=== PATIENT | female | born 2000 | race Caucasian/White ===

== ENCOUNTER 2022-03-17 19:50 | Inpatient (IN) | payer OTHER ==
[2022-03-17] MEDS ORDERED: DEXTROSE 5%-LACTATED RINGERS 1,000 ML IV SCH (21:30)
[2022-03-17] MEDS ORDERED: PENICILLIN G POTASSIUM 20,000,000 (20Mm) UNITS VIAL IVPB ONE ×2 (21:59)
[2022-03-17 22:11] VITALS: BMI 28.3
[2022-03-17] MEDS: MISOPROSTOL 100 MCG TABLET PV SCH ×2 (22:20→22:35)
[2022-03-17] MEDS ORDERED: PENICILLIN G POTASSIUM 5,000,000 UNIT in DEXTROSE 5%-WATER - 250 ML IVPB ONE (22:30)
[2022-03-18] MEDS ORDERED: BUTORPHANOL TARTRATE 2 MG/ML VIAL ONE (02:15)
[2022-03-18] MEDS ORDERED: PROMETHAZINE HCL 25 MG/1 ML VIAL ONE (02:15)
[2022-03-18] MEDS ORDERED: BUTORPHANOL TARTRATE 1 MG/ML VIAL IVPB ONE (02:21)
[2022-03-18] MEDS ORDERED: PROMETHAZINE HCL 25 MG/1 ML VIAL IVPB ONE (02:21)
[2022-03-18] MEDS: MISOPROSTOL 100 MCG TABLET PV SCH ×2 (02:25→06:16)
[2022-03-18] MEDS ORDERED: PENICILLIN POTASSIUM IVPB SCH (02:30)
[2022-03-18] MEDS ORDERED: WATER IVPB SCH (02:30)
[2022-03-18] MEDS ORDERED: DEXTROSE 5% IVPB SCH (02:30)
[2022-03-18] MEDS ORDERED: OXYTOCIN 20 UNITS in 0.9% NS 20 UNIT/1,000 ML INFUS.BAG IV ONE ×2 (03:57→05:00)
[2022-03-18] MEDS ORDERED: WITCH HAZEL 50% (TUCKS) 40 PAD/JAR PAD TP PRN (05:13)
[2022-03-18] MEDS ORDERED: BISACODYL 10 MG SUPP.RECT RC PRN (05:13)
[2022-03-18] MEDS ORDERED: BENZOCAINE 28 GM HEMORRHOIDAL OINTMENT TP PRN (05:13)
[2022-03-18] MEDS ORDERED: ACETAMINOPHEN 325 MG TABLET (FP) PO PRN (05:13)
[2022-03-18] MEDS ORDERED: BENZOCAINE 20% 57 GM BOTTLE TP PRN (05:13)
[2022-03-18] MEDS: OXYTOCIN 20 UNITS in 0.9% NS 20 UNIT/1,000 ML INFUS.BAG IV SCH (06:16)
[2022-03-18 07:16] LABS: CORD BASE EXCESS -6.4 mmol/L (0-2); CORD PCO2 42.9 mmHg (30-78); CORD pH 7.287 (7.14-7.44)
[2022-03-18 08:16] LABS: HEMATOCRIT 23.5 % (32.4-45.2); HEMOGLOBIN 7.6 GM/dL (10.7-15.3); MCH 29.4 pg (25.7-33.7); MCHC 32.5 g/dl (32.0-36.0); MEAN CELL VOLUME 90.4 fl (80-96); MEAN PLT VOLUME 11.7 fl (7.5-11.1); PLATELET COUNT 193 10^3/uL (134-434); RDW 12.8 % (11.6-15.6)
[2022-03-18] MEDS: FERROUS SO4 325 MG TABLET (FP) PO SCH ×3 (08:25→17:35)
[2022-03-18] MEDS: PRENATAL VITAMINS W/ FOLIC ACID TABLET (FP) PO SCH (09:50)
[2022-03-18] MEDS ORDERED: ceFAZolin 2 GRAM PREMIX BAG IVPB SCH (10:00)
[2022-03-18] MEDS ORDERED: CEFAZOLIN 2 GM in DEXTROSE 5%-WATER - 100 ML IVPB SCH (11:00)
[2022-03-18 11:27] LABS: ANISOCYTOSIS 1+; MACROCYTOSIS 0
[2022-03-18] MEDS: CEFAZOLIN 2 GM in DEXTROSE 5%-WATER - 100 ML IVPB SCH ×2 (11:42→19:46)
[2022-03-18 15:04] LABS: BASO % 0.1 % (0-2.0); HEMATOCRIT 19.9 % (32.4-45.2); LYMPH % 4.3 % (8-40); MCH 29.2 pg (25.7-33.7); MCHC 32.4 g/dl (32.0-36.0); MEAN CELL VOLUME 90.2 fl (80-96); MEAN PLT VOLUME 11.3 fl (7.5-11.1); MONO % 3.6 % (3.8-10.2); PLATELET COUNT 153 10^3/uL (134-434); RBC 2.21 M/mm3 (3.60-5.2); RDW 13.2 % (11.6-15.6); WHITE BLOOD COUNT 26.8 K/mm3 (4.0-10.0)
[2022-03-18 15:07] LABS: HEMOGLOBIN 6.5 GM/dL (10.7-15.3)
[2022-03-18 15:20] LABS: BLOOD UREA NITROGEN 6.2 mg/dL (7-18); CALCIUM 7.7 mg/dL (8.5-10.1)
[2022-03-18 15:23] LABS: CREATININE 0.5 mg/dL (0.55-1.3)
[2022-03-18 15:25] LABS: BILIRUBIN,TOTAL 0.2 mg/dL (0.2-1); TOT PROT 4.8 g/dl (6.4-8.2)
[2022-03-18] MEDS ORDERED: FERRIC CARBOXYMALTOSE 750 MG in SODIUM CHLORIDE 250 ML IVPB ONE (15:28)
[2022-03-18 16:01] LABS: ANISOCYTOSIS 0; MACROCYTOSIS 0
[2022-03-18] MEDS ORDERED: IRON SUCROSE INJECTION 300 MG in SODIUM CHLORIDE 235 ML IVPB ONE (16:25)
[2022-03-19] MEDS: CEFAZOLIN 2 GM in DEXTROSE 5%-WATER - 100 ML IVPB SCH ×3 (03:37→19:39)
[2022-03-19] MEDS: OXYTOCIN 20 UNITS in 0.9% NS 20 UNIT/1,000 ML INFUS.BAG IV SCH (06:05)
[2022-03-19 08:17] LABS: BASO % 0.2 % (0-2.0); EOS % 0.4 % (0-4.5); HEMATOCRIT 16.3 % (32.4-45.2); LYMPH % 17.9 % (8-40); MCH 30.6 pg (25.7-33.7); MCHC 34.1 g/dl (32.0-36.0); MEAN CELL VOLUME 89.7 fl (80-96); MEAN PLT VOLUME 10.1 fl (7.5-11.1); MONO % 9.4 % (3.8-10.2); NEUT % 72.1 % (42.8-82.8); PLATELET COUNT 159 10^3/uL (134-434); RBC 1.81 M/mm3 (3.60-5.2); RDW 13.4 % (11.6-15.6)
[2022-03-19 08:24] LABS: HEMOGLOBIN 5.6 GM/dL (10.7-15.3)
[2022-03-19] MEDS: FERROUS SO4 325 MG TABLET (FP) PO SCH ×3 (09:00→17:14)
[2022-03-19 09:29] LABS: INR 1.09 (0.83-1.09); PROTHROMBIN TIME (PATIENT) 12.5 SEC (9.7-13.0)
[2022-03-19] MEDS: PRENATAL VITAMINS W/ FOLIC ACID TABLET (FP) PO SCH (09:58)
[2022-03-19] MEDS: IBUPROFEN 600 MG TABLET (FP) PO PRN ×2 (09:58→22:47)
[2022-03-19] MEDS ORDERED: DIPHTH,PERTUSS(ACELL),TET 0.5 ML DISP.SYRIN IM ONE (10:00)
[2022-03-19] MEDS ORDERED: FLU VACC QS2021-22(6MOS UP)/PF 60 MCG/0.5 ML SYRINGE IM ONE (10:00)
[2022-03-19] MEDS ORDERED: SENNOSIDES/DOCUSATE COMBO (SENNA PLUS) TABLET (UD) PO PRN (22:00)
[2022-03-20] MEDS: CEFAZOLIN 2 GM in DEXTROSE 5%-WATER - 100 ML IVPB SCH ×2 (03:16→10:44)
[2022-03-20 08:24] LABS: HEMATOCRIT 22.2 % (32.4-45.2); HEMOGLOBIN 7.4 GM/dL (10.7-15.3); MCH 29.1 pg (25.7-33.7); MCHC 33.3 g/dl (32.0-36.0); MEAN CELL VOLUME 87.5 fl (80-96); MEAN PLT VOLUME 10.1 fl (7.5-11.1); PLATELET COUNT 185 10^3/uL (134-434); RBC 2.53 M/mm3 (3.60-5.2); RDW 15.8 % (11.6-15.6); WHITE BLOOD COUNT 18.3 K/mm3 (4.0-10.0)
[2022-03-20] MEDS: FERROUS SO4 325 MG TABLET (FP) PO SCH ×2 (09:00→12:53)
[2022-03-20] MEDS ORDERED: FLU VACC QS2021-22(6MOS UP)/PF 60 MCG/0.5 ML SYRINGE IM ONE (10:00)
[2022-03-20] MEDS ORDERED: DIPHTH,PERTUSS(ACELL),TET 0.5 ML DISP.SYRIN IM ONE (10:00)
[2022-03-20 10:02] LABS: ANISOCYTOSIS 0; MACROCYTOSIS 0
[2022-03-20] MEDS: PRENATAL VITAMINS W/ FOLIC ACID TABLET (FP) PO SCH (10:44)
[2022-03-20 13:34] VITALS: BP 138/88; PULSE 114; TEMP 98.4
== END 2022-03-20 14:40 | disposition home or self-care (01) | DRG 560 ==
LOC: JLDR 19:50 → J3W 03-18 06:07
PROVIDERS: ADMIT Obstetrics & Gynecology Maternal & Fetal Medicine; ATTEND Obstetrics & Gynecology Maternal & Fetal Medicine
PROC: 10E0XZZ Delivery of Products of Conception, External Approach (ICD-10-PCS; principal; 2022-03-18)
PROC: 0KQM0ZZ Repair Perineum Muscle, Open Approach (ICD-10-PCS; 2022-03-18)
PROC: 0UC97ZZ Extirpation of Matter from Uterus, Via Natural or Artificial Opening (ICD-10-PCS; 2022-03-18)
PROC: 3E0P7VZ Introduction of Hormone into Female Reproductive, Via Natural or Artificial Opening (ICD-10-PCS; 2022-03-18)
PROC: 30233N1 Transfusion of Nonautologous Red Blood Cells into Peripheral Vein, Percutaneous Approach (ICD-10-PCS; 2022-03-19)
DX: O41.03X0 Oligohydramnios, third trimester, not applicable or unspecified (principal); O72.1 Other immediate postpartum hemorrhage; O70.1 Second degree perineal laceration during delivery; O99.13 Other diseases of the blood and blood-forming organs and certain disorders involving the immune mechanism complicating the puerperium; O90.81 Anemia of the puerperium; D72.828 Other elevated white blood cell count; D68.8 Other specified coagulation defects; R55 Syncope and collapse; O26.53 Maternal hypotension syndrome, third trimester; R00.0 Tachycardia, unspecified; Z3A.39 39 weeks gestation of pregnancy; Z37.0 Single live birth
CPT/HCPCS: 36415; 36430; 36600; 59409; 71045-TC-FY; 80053; 82803; 84597; 85025; 85270; 85610; 86850; 86900; 86901; 86922; 90686; 90715; 93005; 93010; C9803-CS; G0008; J1756; P9058; U0003; U0005